=== PATIENT | female | born 1985 | race Caucasian/White ===

== ENCOUNTER 2018-06-20 03:25 | Inpatient (IN) | payer OTHER ==
[2018-06-20 04:14] VITALS: BMI 48.9
[2018-06-20 05:33] LABS: Hemoglobin 12.6 g/dL (12.0-16.0); Mean Corpuscular HGB CONC 33.7 g/dL (32.0-36.0); Mean Corpuscular Hemoglobin 30.2 pg (27.0-31.0); Mean Corpuscular Volume 89.7 fL (78.0-98.0); Mean Platelet Volume 7.9 fL (7.4-10.4); Platelet Count 241 thou/uL (130-400); RBC Distribution Width 12.1 % (11.5-14.5); Red Blood Cell (RBC) Count 4.18 mill/uL (4.20-5.40); White Blood Cell (WBC) Count 9.8 thou/uL (4.8-10.8)
[2018-06-20 05:46] LABS: HBSAg Index 0.17 S/CO (0-0.99); HIV (1/2) Antibody/Antigen Non-Reactive (NonReactive); HIV 1/2 INDEX 0.16 S/CO (<1.00); Hep B Surf Ag Non-Reactive S/CO (NonReactive)
[2018-06-20] MEDS ORDERED: DISCONTINUE ALL PREVIOUS NARCOTICS FS SCH (06:15)
[2018-06-20] MEDS ORDERED: Promethazine HCl 25 MG/ML VIAL IM PRN ×2 (06:26→06:53)
[2018-06-20] MEDS ORDERED: Ondansetron HCl/PF 4 MG/2 ML Vial IVP PRN ×2 (06:26→06:53)
[2018-06-20] MEDS ORDERED: HYDROcodone/Acetaminophen 5/325 mg Tablet PO PRN ×2 (06:26)
[2018-06-20] MEDS ORDERED: Lidocaine 1% (PF) 30 ML VIAL SC PRN (06:26)
[2018-06-20] MEDS ORDERED: Ibuprofen 800 MG TAB PO PRN (06:26)
[2018-06-20] MEDS ORDERED: Butorphanol Tartrate 1 MG/ML VIAL SLOW IVP PRN (06:26)
[2018-06-20] MEDS ORDERED: NS / Oxytocin 40 units/1000ml 1,000 ML IV PRN (06:26)
[2018-06-20] MEDS ORDERED: Lactated Ringer's 1,000 ML IV SCH (06:30)
[2018-06-20] MEDS ORDERED: NS w/ Oxytocin 10 units 500 ML IV SCH (06:30)
[2018-06-20] MEDS: Lactated Ringer's 1,000 ML IV SCH ×3 (06:45→22:01)
[2018-06-20] MEDS: Bupivacaine 0.75% 13.4 ML, fentaNYL Citrate/PF 400 MCG in Sodium Chloride 0.9% 78.6 ML EPIDURAL SCH ×3 (06:45→22:01)
[2018-06-20 06:53] LABS: Syphilis Antibody Nonreactive (Nonreactive); Syphilis Antibody Index 0.04 S/CO (<1.00 Non-Reactive)
[2018-06-20] MEDS ORDERED: Acetaminophen 325 MG TAB PO PRN (06:53)
[2018-06-20] MEDS ORDERED: Lactated Ringer's 500 ML IV PRN (06:53)
[2018-06-20] MEDS ORDERED: Naloxone HCl 0.4 mg/ml Vial IVP PRN ×2 (06:53)
[2018-06-20] MEDS ORDERED: ePHEDrine/0.9% NaCl/PF SYRINGE 50 mg/10 ml SLOW IVP PRN (06:53)
[2018-06-20] MEDS ORDERED: diphenhydrAMINE 50 MG/ML VIAL IVP PRN (06:53)
[2018-06-20] MEDS ORDERED: Eucerin (Mineral Oil/Petrolatum,White) 30 gm Jar TOP PRN (06:53)
[2018-06-20] MEDS ORDERED: Communication Order-Pharmacy FS SCH (07:00)
[2018-06-20] MEDS ORDERED: fentaNYL Citrate/PF 400 MCG, Bupivacaine 0.5% 20 ML in Sodium Chloride 0.9% 72 ML EPIDURAL SCH (07:00)
[2018-06-20] MEDS ORDERED: Bupivacaine HCl 0.5%/Epinephrine 1:200,000/PF 30 ml Vial ONE (09:03)
[2018-06-20] MEDS ORDERED: NS w/ Oxytocin 10 units 500 ML ONE (10:11)
--- NOTE | 2018-06-20 11:55 | PDOC.LDHP ---
Labor and Delivery H&P Chief complaint: loss of fluid (at 0300) HPI: 32yo A2 at 38w0d by LMP with c/o LOF since 0300 clear and painful ctx q 5- 8min. Current gestational age (weeks): 38 Due date: 07/05/18 Dating criteria: last menstrual period Grav: 3 Para: 2 Current complications: none Abnormal US findings: No (EFW >99% at 34wk) Past Medical History: denies Current medications: pre- vitamins Previous surgical history: other (hymenectomy) Allergies/Adverse Reactions: Allergies Allergy/AdvReac Type Severity Reaction Status Date / Time No Known Allergies Allergy Verified 06/20/18 04:10 Social history: none - Physical Exam Vital signs reviewed and normal: yes General: NAD Heart: RRR Lungs: CTAB Abdomen: gravid Extremeties: no edema FHT: category 1 [place] contractions every: 3min - Vaginal Exam cm dilated: 4 Effacement: 90% Station: -1 - OB Labs Blood type: A RH: positive Antibody Screen: negative HIV: negative RPR: negative HEPSAg: negative 1 hour GCT: negative GBS: negative Urine drug screen: not done Rubella: immune - Assessment L&D Assessment: term patient in labor - Plan Plan: admit to L&D, labor augmentation if indicated, informed consent obtained, anesthesia consult for pain management
--- NOTE | 2018-06-20 19:39 | PDOC.LDPN ---
Labor & Delivery Progress Note - Subjective Subjective: comfortable - Objective Vital signs reviewed and normal: yes General: NAD Uterine fundus: non tender Dilation: 7 Effacement: 100% Station: 0 FHT: category 1 [place] contractions every: 3-4min IUPC placed: yes Plan: continue plan of care
[2018-06-21] MEDS ORDERED: Misoprostol 200 MCG TAB ONE (00:54)
[2018-06-21] MEDS ORDERED: CEFAZOLIN/Water 2 GM/20 ML SYRINGE ONE (03:02)
[2018-06-21] MEDS ORDERED: Bicitra 30 ML UDCUP ONE (03:02)
--- NOTE | 2018-06-21 03:08 | PDOC.LDPN ---
Labor & Delivery Progress Note - Subjective Subjective: vaginal pressure - Objective Vital signs reviewed and normal: yes General: NAD Uterine fundus: non tender Dilation: 10 Effacement: 100% Station: 1+ (direct OP) FHT: category 1 [place] contractions every: 3min -: Now pushing for almost 3hr with no descent since initiation and trying pushing multiple positions. Baby is Direct OP, attempt was made to turn baby to OA however unsuccessful. Dispo for PCS due to AOD. To OR now, maria r and juno for ppx. Disc with pt and in detail and they wish to proceed.
[2018-06-21] MEDS ORDERED: CEFAZOLIN/Water 2 GM/20 ML SYRINGE SLOW IVP SCH (03:15)
[2018-06-21] MEDS ORDERED: Bicitra 30 ML UDCUP PO SCH (03:15)
[2018-06-21] MEDS ORDERED: Azithromycin 500 MG in Sodium Chloride 0.9% 250 ML 250 ML IVPB SCH (03:15)
[2018-06-21] MEDS ORDERED: Ondansetron HCl/PF 4 MG/2 ML Vial ONE ×2 (03:25→15:03)
[2018-06-21] MEDS ORDERED: Morphine PF 1 MG/ML SYR ONE (03:25)
[2018-06-21] MEDS ORDERED: Oxytocin 10 UNITS/ML VIAL ONE ×2 (03:25→04:18)
[2018-06-21] MEDS ORDERED: Lidocaine 2% 10 ML INJ ONE (03:27)
[2018-06-21] MEDS ORDERED: ePHEDrine/0.9% NaCl/PF SYRINGE 50 mg/10 ml ONE ×2 (04:02→15:03)
[2018-06-21] MEDS ORDERED: Ondansetron HCl/PF 4 MG/2 ML Vial IVP PRN ×2 (04:12→04:13)
[2018-06-21] MEDS ORDERED: HYDROmorphone 2 MG/ML VIAL SLOW IVP PRN (04:12)
[2018-06-21] MEDS ORDERED: Meperidine HCl/PF 25 MG/ML VIAL SLOW IVP PRN (04:12)
[2018-06-21] MEDS ORDERED: Eucerin (Mineral Oil/Petrolatum,White) 30 gm Jar TOP PRN (04:13)
[2018-06-21] MEDS ORDERED: Naloxone HCl 0.4 mg/ml Vial IVP PRN ×2 (04:13)
[2018-06-21] MEDS ORDERED: diphenhydrAMINE 50 MG/ML VIAL IVP PRN (04:13)
[2018-06-21] MEDS ORDERED: Ketorolac Tromethamine 30 MG/ML VIAL IVP PRN (04:13)
[2018-06-21] MEDS ORDERED: Naloxone HCl 0.4 mg/ml Vial IV PRN (04:13)
[2018-06-21] MEDS ORDERED: Ketorolac Tromethamine 30 MG/ML VIAL IVP SCH (04:15)
[2018-06-21] MEDS ORDERED: Communication Order-Pharmacy FS SCH (04:15)
[2018-06-21] MEDS ORDERED: Fentanyl 250 MCG/5 ML VIAL ONE (04:17)
[2018-06-21] MEDS ORDERED: Midazolam HCl 2 mg/2 ml Vial ONE (04:21)
--- NOTE | 2018-06-21 05:21 | OP ---
DATE OF OPERATION: 06/21/2018 PREOPERATIVE DIAGNOSES: 1. Intrauterine at 38 weeks and 1 day. 2. Spontaneous onset of labor. 3. Arrest of descent. POSTOPERATIVE DIAGNOSES: 1. Intrauterine at 38 weeks and 1 day. 2. Spontaneous onset of labor. 3. Arrest of descent. PROCEDURE: Primary low transverse section via Pfannenstiel skin incision and left O'Newport s uture. ANESTHESIA: Epidural. ATTENDING SURGEON: Claudia Sotelo M.D. CHIEF SERVICE DISPATCHER: Luke Cevallos M.D. ESTIMATED BLOOD LOSS: 800 mL. Final quantitative blood loss pending per nursing. COMPLICATIONS: None. DRAINS: Briceno catheter. PATHOLOGY: None. FINDINGS: Male , OP presentation, clear amniotic fluid, Apgars of 9 and 9, weight is 8 pounds 3 ounces. Normal uterus, ovaries, and tubes bilaterally. There was extension of hysterotomy into th e left uterine vessel that was hemostatic with the left O'Newport stitch. OPERATIVE TECHNIQUE: Patient was taken to the operating room where epidural anesthesia was found to be adequate. Patient was prepped and draped in sterile fashion on dorsal supine position with leftwa rd tilt. After ensuring adequacy of anesthesia, a Pfannenstiel skin incision was made and carried do wn to the underlying subcutaneous tissue with a knife, cauterizing vessels with the Bovie. The fasci a was nicked in the midline with Bovie and carried laterally with the Espinoza scissors. Rectus perforat ors were cauterized. The superior aspect of the fascia was tented with 2 Kochers and dissected off t he rectus bluntly. The inferior aspect of the fascia was tented with 2 Kochers and dissected off the rectus with the Espinoza scissors. The peritoneum was bluntly entered into and manually retracted. The Damaso O retractor was placed. The bowel was packed out of the way. The bladder flap was created w ith the Metzenbaums and the lower uterine segment was incised in a transverse fashion and extended wi th the Alvarado maneuver. The infant's head was brought to the hysterotomy and delivered atraumatically. Delayed cord clamping was performed and infant's cord was clamped and handed to awaiting radha team. Cord blood was obtained and placenta was allowed to spontaneously deliver. The uterine exten tiffanie was clamped off with a ring forceps and whereas the initial stitch for closure with #1 Monocryl. The uterine vessel was attempted to be incorporated into the initial closure; however, there was st ill active bleeding from the left aspect of the hysterotomy and this was hemostatic with a figure-of- eight O'Newport stitch on the left uterine vessel just distal to the uterus, so bladder had previously been taken down was well out of the way and the hand was placed posteriorly to retract any posterior structures out of the way. An excellent hemostasis was noted of this area. The hysterotomy was then repaired with #1 Monocryl in a running locking fashion with hemostasis noted. A second horizontal i mbricating layer of #1 Monocryl was also placed and hemostasis was excellent. The pelvis was copious ly irrigated and suctioned and again noting hemostasis. The laparotomy sponge was removed out of the abdomen. Counts were correct at this time and the Damaso O retractor was removed out of the abdomen . The rectus muscles were examined and noted to be hemostatic. The peritoneum was closed with a 2-0 chromic in a running fashion. The fascia was reapproximated with a #1 PDS x2 sutures with excellent reapproximation. The subcutaneous tissue was irrigated and cauterized of any bleeders and reapproxi mated with 2 layers of 2-0 plain gut in a running fashion. The skin was closed with 4-0 Monocryl in a subcuticular fashion. Dermabond was applied as well as a pressure dressing. Patient tolerated pro cedure well. Sponge, lap, and needle counts were correct x2. Patient was taken to recovery room in stable condition. Patient received Ancef 2 grams and azithromycin 500 mg prior to skin incision.
[2018-06-21] MEDS ORDERED: Ketorolac Tromethamine 30 MG/ML VIAL ONE (06:12)
[2018-06-21] MEDS ORDERED: diphenhydrAMINE 25 MG CAP PO PRN (07:50)
[2018-06-21] MEDS ORDERED: Lanolin Ointment 7 GM TUBE TOP PRN (07:50)
[2018-06-21] MEDS ORDERED: Acetaminophen 325 MG TAB PO PRN (07:50)
[2018-06-21] MEDS ORDERED: Adacel (T-DAP) 0.5 ML VIAL IM ONE (07:50)
[2018-06-21] MEDS: Ibuprofen 800 MG TAB PO SCH ×2 (08:47→16:18)
[2018-06-21] MEDS: Docusate Calcium (SURFAK) 240 MG CAP PO SCH ×2 (08:58→22:13)
[2018-06-21] MEDS: Prenatal Vitamin 1 TAB PO SCH (09:01)
[2018-06-21] MEDS: Ferrous Sulfate 325 MG TAB PO SCH ×2 (09:01→22:14)
--- NOTE | 2018-06-21 11:04 | OP ---
DATE OF ENCOUNTER: 06/21/2018 The patient underwent a primary for arrest of second stage early this morning by her primar y physician, Dr. Claudia Sotelo. I was general office assistant.
--- NOTE | 2018-06-21 12:36 | PDOC.PP ---
Post Progress Note Post Day #: 0 PO intake tolerated: yes Flatus: no Ambulation: no Vital Signs (12 hours) Temp Pulse Resp BP Pulse Ox 06/21/18 12:00 98.4 F 92 16 06/21/18 09:45 98.4 F 92 16 119/73 97 06/21/18 08:45 99 20 128/72 06/21/18 07:50 98.4 F 100 16 133/78 97 06/21/18 07:45 98.4 F 100 16 97 Weight Weight 285 lb - Physical Examination General: NAD Cardiovascular: RRR Respiratory: non-labored breathing Abdominal: no distention, appropriately TTP Fundus firm & at: umb Psychiatric: normal affect Result Diagrams: 06/20/18 05:04 Additional Labs: Post Labs Blood Type A POSITIVE 06/20/18 05:04 Hep Bs Antigen Non-Reactive S/CO (NonReactive) 06/20/18 05:04 - Assessment/Plan POD0 s/p PCS for AOD VSSAF Doing well, routine advances Rh pos RImm Cont postop care.
[2018-06-21] MEDS: Lactated Ringer's 1,000 ML IV SCH (13:57)
[2018-06-21] MEDS: Simethicone Chewable 80 MG TAB PO PRN (23:01)
[2018-06-21] MEDS: HYDROcodone/Acetaminophen 5/325 mg Tablet PO PRN (23:01)
[2018-06-22] MEDS: Ibuprofen 800 MG TAB PO SCH ×4 (01:18→21:44)
[2018-06-22] MEDS: HYDROcodone/Acetaminophen 5/325 mg Tablet PO PRN ×4 (03:53→17:45)
[2018-06-22] MEDS: Simethicone Chewable 80 MG TAB PO PRN ×2 (05:36→13:47)
[2018-06-22 06:01] LABS: Hemoglobin 10.8 g/dL (12.0-16.0); Mean Corpuscular HGB CONC 34.5 g/dL (32.0-36.0); Mean Corpuscular Hemoglobin 31.7 pg (27.0-31.0); Mean Corpuscular Volume 91.9 fL (78.0-98.0); Mean Platelet Volume 7.5 fL (7.4-10.4); Platelet Count 201 thou/uL (130-400); RBC Distribution Width 12.3 % (11.5-14.5); White Blood Cell (WBC) Count 11.2 thou/uL (4.8-10.8)
--- NOTE | 2018-06-22 07:39 | PDOC.PP ---
Post Progress Note Post Day #: 1 PO intake tolerated: yes Flatus: yes Ambulation: yes Vital Signs (12 hours) Temp Pulse Resp BP Pulse Ox 06/22/18 01:00 98.3 F 101 H 18 120/73 06/21/18 22:30 98.9 F 104 H 16 121/74 97 Weight Weight 285 lb - Physical Examination General: NAD Cardiovascular: RRR Respiratory: non-labored breathing Abdominal: no distention, appropriately TTP Fundus firm & at: umb Skin: CS incision dry & intact Neurological: no gross focal deficits Psychiatric: normal affect Result Diagrams: 06/22/18 05:29 Additional Labs: Post Labs Blood Type A POSITIVE 06/20/18 05:04 Hep Bs Antigen Non-Reactive S/CO (NonReactive) 06/20/18 05:04 - Assessment/Plan POD1 s/p PCS for AOD VSSAF Doing well, some anxiety related to , pain controlled and appropriate milestones. consult ordered Hgb appropriate postop, no sx anemia. Rh pos RImm Cont postop care.
[2018-06-22] MEDS: Docusate Calcium (SURFAK) 240 MG CAP PO SCH ×2 (09:24→21:43)
[2018-06-22] MEDS: Prenatal Vitamin 1 TAB PO SCH (09:25)
[2018-06-22] MEDS: Ferrous Sulfate 325 MG TAB PO SCH ×2 (09:25→21:42)
[2018-06-23] MEDS: Prenatal Vitamin 1 TAB PO SCH (08:25)
[2018-06-23] MEDS: Docusate Calcium (SURFAK) 240 MG CAP PO SCH ×2 (08:25→21:57)
[2018-06-23] MEDS: Ibuprofen 800 MG TAB PO SCH ×3 (08:25→22:58)
[2018-06-23] MEDS: Ferrous Sulfate 325 MG TAB PO SCH ×2 (08:30→22:59)
--- NOTE | 2018-06-23 17:38 | PDOC.PP ---
Post Progress Note Post Day #: 2 PO intake tolerated: yes Flatus: yes Ambulation: yes Vital Signs (12 hours) Temp Pulse Resp BP 06/23/18 08:05 97.9 F 89 20 134/83 06/23/18 07:30 97.9 F 89 20 Weight Weight 285 lb - Physical Examination General: NAD Cardiovascular: RRR Respiratory: non-labored breathing Abdominal: no distention, appropriately TTP Fundus firm & at: umb-2 Skin: CS incision dry & intact Psychiatric: normal affect Result Diagrams: 06/22/18 05:29 Additional Labs: Post Labs Blood Type A POSITIVE 06/20/18 05:04 Hep Bs Antigen Non-Reactive S/CO (NonReactive) 06/20/18 05:04 Rubella IgG Antibody 3.31 index (Immune >0.99) 06/20/18 05:04 - Assessment/Plan POD2 s/p PCS for AOD VSSAF Doing well met all milestones, s/p BM, pain controlled s/p , still with questions, to revisit today Rh pos RImm Home likely tomorrow.
[2018-06-23] MEDS: HYDROcodone/Acetaminophen 5/325 mg Tablet PO PRN (18:29)
[2018-06-23] MEDS: Simethicone Chewable 80 MG TAB PO PRN (21:57)
[2018-06-24] MEDS: Ibuprofen 800 MG TAB PO SCH (06:35)
[2018-06-24] MEDS: Ferrous Sulfate 325 MG TAB PO SCH (07:36)
[2018-06-24 08:00] VITALS: BP 110/59; TEMP 98.6
--- NOTE | 2018-06-24 08:00 | PDOC.PP ---
Post Progress Note Post Day #: 3 PO intake tolerated: yes Flatus: yes Ambulation: yes Vital Signs (12 hours) Temp Pulse Resp BP 06/23/18 20:26 98.0 F 101 H 20 133/90 Weight Weight 285 lb - Physical Examination General: NAD Cardiovascular: RRR Respiratory: non-labored breathing Abdominal: no distention, appropriately TTP Fundus firm & at: umb-2 Skin: CS incision dry & intact Neurological: no gross focal deficits Psychiatric: normal affect Result Diagrams: 06/22/18 05:29 Additional Labs: Post Labs Blood Type A POSITIVE 06/20/18 05:04 Hep Bs Antigen Non-Reactive S/CO (NonReactive) 06/20/18 05:04 Rubella IgG Antibody 3.31 index (Immune >0.99) 06/20/18 05:04 - Assessment/Plan POD3 s/p PCS for AOD VSSAF Doing well, met all milestones s/p LC Rh pos RImm DC home FU 2 wk
[2018-06-24] MEDS: Docusate Calcium (SURFAK) 240 MG CAP PO SCH (09:09)
[2018-06-24] MEDS: Prenatal Vitamin 1 TAB PO SCH (09:09)
== END 2018-06-24 14:25 | disposition home or self-care (01) | DRG 766 ==
LOC: L&D/OP 03:25 → L&D 04:37 → 3SW 06-21 07:48
PROVIDERS: ADMIT Student in an Organized Health Care Education/Training Program; ATTEND Student in an Organized Health Care Education/Training Program
PROC: 10D00Z1 Extraction of Products of Conception, Low, Open Approach (ICD-10-PCS; principal; 2018-06-21)
DX: O62.1 Secondary uterine inertia (principal); Z3A.38 38 weeks gestation of pregnancy; Z37.0 Single live birth
CPT/HCPCS: 36415; 51702; 85027; 86762; 86780; 86850; 86900; 86901; 87340; 87389; 99285; J0456; J0670; J1885; J2001; J2250; J2274; J2405; J2590; J3010; J7050

== ENCOUNTER 2019-04-13 14:18 | Outpatient (CLI) | payer OTHER ==
--- NOTE | 2019-04-13 15:44 | MMO ---
Bilateral MAMMO Bilat Diag DDI+RONI. CLINICAL HISTORY: Patient is 33 years old and is seen for diagnostic exam,palpable abnormality and pain in the left breast. The patient has the following family history of breast cancer: maternal grandmother. The patient has no personal history of cancer. VIEWS: The views performed were: bilateral craniocaudal with tomosynthesis; bilateral mediolateral oblique with tomosynthesis; and bilateral mediolateral. FILMS COMPARED: The present examination has been compared to a prior imaging study performed at [facility] on 04/13/2019. MAMMOGRAM FINDINGS: There are scattered fibroglandular densities. Finding 1: There is an intramammary lymph node seen in the left breast at 5 o'clock. Finding 2: No mammographic or ultrasound finding to account for the palpable finding. There are no suspicious masses, suspicious calcifications, or new areas of architectural distortion. IMPRESSION: THERE IS NO MAMMOGRAPHIC EVIDENCE OF MALIGNANCY. A ROUTINE FOLLOW-UP MAMMOGRAM AT AGE 40 IS RECOMMENDED. THE RESULTS OF THIS EXAM WERE SENT TO THE PATIENT. ACR BI-RADS Category 2 - Benign finding MAMMOGRAPHY NOTE: 1. A negative mammogram report should not delay a biopsy if a dominant of clinically suspicious mass is present. 2. Approximately 10% to 15% of breast cancers are not detected by mammography. 3. Adenosis and dense breasts may obscure an underlying neoplasm.
--- NOTE | 2019-04-13 15:51 | ULT ---
LEFT BREAST ULTRASOUND: HISTORY: Palpable finding left breast at approximately 9 o'clock. FINDINGS: There is a small circumscribed echogenic focus in the 9 o'clock position of the left breast, evidence for a small lipoma. I do not think that this represents the palpable finding. In the 5 o'clock pos ition 5 cm from the nipple, there is an intramammary lymph node measuring 0.6 cm. IMPRESSION: Unremarkable diagnostic mammogram and left breast ultrasound in the region of palpable concern. Inci dental small lipoma. Small intramammary lymph node. Followup mammogram at age 35-40 depending upon risk factors. POS: OFF
== END 2019-04-13 14:19 | disposition home or self-care (01) ==
LOC: BICMAMMO 14:18
PROVIDERS: ATTEND Obstetrics & Gynecology
DX: N63.20 Unspecified lump in the left breast, unspecified quadrant (principal); Z80.3 Family history of malignant neoplasm of breast
CPT/HCPCS: 77066; G0279

== ENCOUNTER 2019-07-01 09:36 | Outpatient (CLI) | payer OTHER ==
[~2019-07-01 09:36] MED LIST: Iopamidol 300 61% 100 ML VIAL FS ONE
--- NOTE | 2019-07-01 12:08 | CT ---
CT abdomen and pelvis with IV and oral contrast HISTORY: Lower abdomen pain. FINDINGS: No comparison. Lung bases are clear. The liver, spleen, kidneys, adrenal glands, and pancre as have a normal CT appearance. No free fluid is apparent. Urinary bladder is decompressed. Circumaortic left renal vein. Between the medial aspect of the upper gastric body and the left diaphragmatic crura is an oval low d ensity mass measuring up to 1.8 cm length by 1.5 cm width by 2.0 cm depth. Hounsfield unit measurements are slightly greater than that of simple fluid. The mass is favored to be outside of the gastric wall is separate from the adrenal gland. IMPRESSION: No acute inflammatory process is apparent. Well-circumscribed small mass within the left upper medial abdomen, as detailed above. It does not santos ve an overtly aggressive appearance. It is favored to be outside of the stomach, so that the endoscopic visualization is likely not possible. It may represent a congenital anomaly or fluid colle ction or a gastrointestinal intestinal stromal tumor.. Please consider follow-up CT in 6 months to evaluate for stability.
== END 2019-07-01 09:37 | disposition home or self-care (01) ==
LOC: SCSCT 09:36
PROVIDERS: ATTEND Family Medicine
DX: R10.30 Lower abdominal pain, unspecified (principal); R19.04 Left lower quadrant abdominal swelling, mass and lump
CPT/HCPCS: 74177; Q9967

== ENCOUNTER 2020-10-19 20:56 | Inpatient (IN) | payer OTHER ==
[2020-10-19] MEDS ORDERED: hydrALAZINE 20 MG/ML VIAL SLOW IVP PRN ×2 (21:10→22:02)
--- NOTE | 2020-10-19 21:18 | PDOC.FPROB ---
FMR OB H&P: HPI - History of Present Illness Chief Complaint: leakage of fluid Indentification: 35 at at 36.5 wga History of Present Illness: Patient reports she thinks her water broke today around 1729 while she was in the shower. Yesterday she saw some mucus discharge. Since 1729, she has felt some leakage intermittently and soaked through a couple of changes of pants since she did not have any pads. Denies vaginal bleeding and other discharge. [place] FM earlier today. Had planned for RLTCS with this . Reports elevated BP in clinic on Thursday, but no other problems with this . Primary Care Physician: Deepak FMR OB H&P: Current - Care : 4 Para: 1021 Gestational age: 36.5 wga Due date: 11/11/2020 Course/Complications: Obesity. AMA, taking aspirin 81mg Desires repeat . - OB Labs Blood type: A RH: positive Antibody Screen: negative HIV: negative RPR: negative HepBsAg: negative Rubella: immune Quad screen: negative Urine drug screen: negative Gonorrhea: negative Chlamydia: negative 1 hour gtt: 101 A1c: 4.9 GBS: unknown Additional labs: TSH normal FMR OB H&P: History - Past Medical History PMH: Denies - OB History OB History: Prior for failure to descend. 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 - Surgical History Sx History: Hymenectomy - Social History Social History: Denies smoking, drinking, drugs. - Family History Family History: Denies. FMR OB H&P: Medications - Current Home Medications: Medication Instructions Recorded Confirmed Type Comb No.42/Folic Acid 1 tablet PO DAILY 06/20/18 10/19/20 History [Prena1 Chewable Tablet] Aspirin [Ecotrin] 81 mg PO DAILY 10/19/20 10/19/20 History Allergies/Adverse Reactions: Allergies Allergy/AdvReac Type Severity Reaction Status Date / Time No Known Allergies Allergy Verified 10/19/20 21:40 FMR OB H&P: ROS - Review of Systems General: denies: fever/chills Eyes: denies: vision changes ENT: denies: nasal congestion, sore throat Cardiovascular: denies: chest pain Respiratory: denies: cough, shortness of breath Gastrointestinal: denies: abdominal pain, nausea, vomiting Genitourinary (Female): reports: vaginal discharge, vaginal pressure. denies: dysuria, vaginal bleeding, contractions Musculoskeletal: denies: pain Neurologic: reports: headache (mild earlier today) Integumentary: denies: rash Hematologic/Lymphatic: denies: prolonged or excessive bleeding Psychological: denies: depression, anxiety FMR OB H&P: Vital Signs - Maternal Vital signs: HR 105 BP 162/91, multiple cuff sizes attempted - Heart Tones Baseline: 150 (reactive) Variability: moderate Acceleration: present Deceleration: absent [place] contractions every: none FMR OB H&P: Physical Exam - Physical Exam General: NAD, awake, alert and oriented HEENT: normocephalic and atraumatic, no scleral icterus, grossly normal vision, grossly normal hearing Neck: trachea midline Heart: RRR, normal S1/S2, no murmurs/rubs/gallops General: CTAB, no respiratory distress Abdomen: soft, gravid, non-tender Musculoskeletal: FROM in all four extremities Neurological: no focal deficit Skin: no rash, no jaundice Lymphatic: no unusual bruising or bleeding Psychiatric: intact recent and remote memory, normal mood and affect - Pelvic Exam Vulva: normal hair distribution Deviation from normal: right vulvar tag Membranes: grossly ruptured on sterile speculum exam Estimated Weight: 8 lbs, other (difficult to assess due to obese abdomen) FMR OB H&P: A/P - Problem List (1) Current Visit: Yes Status: Acute Disposition: admit to L&D for RLTCS & RRS. Contacted Dr. Bunch for assistance. Discussion: Date/Time: 10/19/202115 35 yo at 36.5 wga PROM - grossly ruptured on exam - amnisure pending Elevated BPs, rule out preeclampsia - CBC, CMP, urine protein/cr ordered - monitor BP q15 min Obesity AMA Desires repeat and risk-reducing salpingectomy. Paperwork demonstrating approval by ethics committee on Patient's chart. This H&P was discussed with Dr. Mantilla, who agrees with the above documentation and plan. Signature: Leonie De La Torre MD PGY2 Addendum - Attending - Attending Attestation Date/Time: 10/20/208 I personally evaluated the patient and discussed the management with Dr. De La Torre. 36 week IUP with prev. C/S and request for RRS presents with SROM. Will proceed to OR with assist by Dr. Bunch. I agree with the History, Examination, Assessment and Plan documented above.
[2020-10-19] MEDS: Lactated Ringer's 1,000 ML IV SCH (21:44)
[2020-10-19] MEDS ORDERED: Ondansetron PF 4 MG/2 ML Vial IVP PRN (22:02)
[2020-10-19] MEDS ORDERED: Promethazine HCl 25 MG/ML VIAL IM PRN (22:02)
[2020-10-19 22:06] LABS: #Basophils 0.1 thou/uL (0.0-0.2); #Eosinphils 0.1 thou/uL (0.0-0.7); #Lymphocytes 1.6 thou/uL (1.20-3.40); #Monocytes 0.7 thou/uL (0.11-0.59); #Neutrophils 6.2 thou/uL (1.40-6.50); %Basophils 0.8 % (0.0-1.0); %Eosinophils 1.1 % (0.0-10.0); %Lymphocytes 18.8 % (21.0-51.0); %Neutrophils 71.4 % (42.0-75.0); Mean Corpuscular Hemoglobin 29.3 pg (27.0-31.0); Mean Corpuscular Volume 86.4 fL (78.0-98.0); Mean Platelet Volume 8.3 fL (7.4-10.4); Platelet Count 231 thou/uL (130-400); RBC Distribution Width 12.3 % (11.5-14.5); White Blood Cell (WBC) Count 8.6 thou/uL (4.8-10.8)
[2020-10-19 22:12] VITALS: BMI 55.7
[2020-10-19 22:15] LABS: Amnisure Internal Control QC ACCEPTABLE (ACCEPTABLE); Amnisure Test RUPTURE DETECTED (No Rupture)
[2020-10-19] MEDS ORDERED: Azithromycin 500 MG in Sodium Chloride 0.9% 250 ML 250 ML IVPB SCH (22:15)
[2020-10-19] MEDS ORDERED: Bicitra 30 ML UDCUP PO SCH (22:15)
[2020-10-19] MEDS ORDERED: CEFAZOLIN 2 GM in Premix Bag 1 BAG IVPB SCH (22:15)
[2020-10-19 22:27] LABS: ALT (SGPT) 15 U/L (8-55); AST (SGOT) 15 U/L (5-34); Albumin 3.3 g/dL (3.5-5.0); Alkaline Phosphatase 123 U/L (40-110); Anion Gap 14 mmol/L (10-20); BUN (Urea Nitrogen) 7 mg/dL (7.0-18.7); Bilirubin, Total 0.3 mg/dL (0.2-1.2); Calc. Creatinine Clearance 281 mL/min (70-130); Calcium 9.5 mg/dL (7.8-10.44); Carbon Dioxide 20 mmol/L (22-29); Chloride 107 mmol/L (98-107); Estimated GFR-MDRD Greater than 90; Globulin 3.3 g/dL (2.4-3.5); Glucose 99 mg/dL (70-105); Potassium 3.4 mmol/L (3.5-5.1); Protein, Total 6.6 g/dL (6.0-8.3); Sodium 138 mmol/L (136-145)
[2020-10-19] MEDS ORDERED: Oxytocin 10 UNITS/ML VIAL ONE (22:35)
[2020-10-19] MEDS ORDERED: Ondansetron PF 4 MG/2 ML Vial ONE (22:35)
[2020-10-19] MEDS ORDERED: PHENYLEPHRINE-NS 100 MCG/ML 10 ML SYRINGE ONE (22:35)
[2020-10-19] MEDS ORDERED: Morphine PF 10 MG/10 ML VIAL ONE (22:35)
[2020-10-19 23:21] LABS: Syphilis Antibody Nonreactive (Nonreactive); Syphilis Antibody Index 0.03 S/CO (<1.00 Non-Reactive)
[2020-10-19 23:23] LABS: HBSAg Index 0.14 S/CO (0-0.99); Hep B Surf Ag Non-Reactive S/CO (NonReactive)
--- NOTE | 2020-10-19 23:30 | ULT ---
LIMITED OB ULTRASOUND: Date: 10/19/2020 PROVIDED CLINICAL HISTORY: Premature rupture of membranes. FINDINGS: A single, live intrauterine gestation is documented in vertex presentation. heart rate of 147 b eats/minute is documented. The placenta is anteriorly and right laterally located, with the relations hip to the cervix not well assessed. Amniotic fluid index is 3.8. IMPRESSION: Vertex presentation. Oligohydramnios. POS: MARANDA
[2020-10-19 23:35] LABS: Actual Bicarbonate (HCO3a) 25.3 mEq/L (22-28); Analyzer IN Cardio ER; Base Excess (BEa) -3.6 mEq/L (-2.0 to +3.0)
[2020-10-19 23:37] LABS: Actual Bicarbonate (HCO3v) 24 mEq/L (22-28); Analyzer IN Cardio ER; pH (Cord, venous) 7.26 (7.32-7.43)
[2020-10-20] MEDS ORDERED: Meperidine HCl/PF 25 MG/ML VIAL SLOW IVP PRN (00:11)
[2020-10-20] MEDS ORDERED: Naloxone HCl 0.4 mg/ml Vial IVP PRN ×2 (00:11)
[2020-10-20] MEDS ORDERED: Naloxone HCl 0.4 mg/ml Vial IV PRN (00:11)
[2020-10-20] MEDS ORDERED: HYDROmorphone 2 MG/ML VIAL SLOW IVP PRN (00:11)
[2020-10-20] MEDS ORDERED: Promethazine HCl 25 MG SUPP PR PRN (00:11)
[2020-10-20] MEDS ORDERED: L&D-Morphine 4 MG/ML VIAL SLOW IVP PRN (00:11)
[2020-10-20] MEDS ORDERED: Ondansetron PF 4 MG/2 ML Vial IVP PRN ×2 (00:11→02:06)
[2020-10-20] MEDS ORDERED: diphenhydrAMINE 50 MG/ML VIAL IVP PRN (00:11)
[2020-10-20] MEDS ORDERED: Promethazine HCl 25 MG/ML VIAL IM PRN (00:11)
[2020-10-20] MEDS ORDERED: Ondansetron HCl/PF 4 MG/2 ML Vial IVP PRN (00:11)
[2020-10-20] MEDS ORDERED: Ondansetron PF 4 MG/2 ML Vial ONE (00:13)
[2020-10-20] MEDS ORDERED: Ketorolac Tromethamine 30 MG/ML VIAL IVP SCH (00:15)
[2020-10-20] MEDS ORDERED: Communication Order-Pharmacy FS SCH (00:15)
[2020-10-20] MEDS ORDERED: Ketorolac Tromethamine 30 MG/ML VIAL ONE (00:18)
[2020-10-20] MEDS: Ketorolac Tromethamine 30 MG/ML VIAL IVP PRN ×4 (00:25→20:27)
[2020-10-20] MEDS: Lactated Ringer's 1,000 ML IV SCH ×2 (00:26→06:09)
[2020-10-20 01:12] LABS: Creatinine, Urine 109.97 mg/dL (47-110)
--- NOTE | 2020-10-20 01:12 | OP ---
DATE OF PROCEDURE: 10/19/2020 PREOPERATIVE DIAGNOSES: 1. 36 and 5/7th-week intrauterine . 2. Previous section. 3. Ruptured membranes. 4. Family history of ovarian cancer requesting risk reducing salpingectomy. POSTOPERATIVE DIAGNOSES: 1. 36 and 5/7th-week intrauterine . 2. Previous section. 3. Ruptured membranes. 4. Family history of ovarian cancer requesting risk reducing salpingectomy. PROCEDURES PERFORMED: 1. Repeat low-segment transverse section via Pfannenstiel incision. 2. Risk reducing bilateral salpingectomies. PARTS PRODUCT ANALYST SURGEONS: Jose Roberto Bunch DO and Leonie De La Torre MD ANESTHESIA: Spinal. ESTIMATED BLOOD LOSS: 600 mL, QBL pending. PROPHYLAXIS: Ancef 2 g with Zithromax 500 mg, both given prior to skin incision. FINDINGS: 1. A male viable male , weight 7 pounds 6 ounces. Apgars 8 and 9, found in the cephalic presentation. 2. Normal uterus, tubes, and ovaries bilaterally. 3. Cord arterial pH of 7.22. TECHNIQUE IN DETAIL: After good spinal anesthesia was achieved, the patient was prepped and draped in usual sterile fashion in the supine position with leftward tilt. A transverse incision was made 2 fingerbreadths above the symphysis pubis and the abdomen was entered in layers. The uterus was identified, and a self-retaining retractor was placed. A transverse incision was made across the lower uterine segment and was extended bluntly. The fetus was found in cephalic presentation and was delivered. The nasopharynx was bulb suctioned and the cord was cut and clamped. Cord blood and cord gases were obtained, and the placenta was manually removed. Closure of the uterine incision was accomplished using a running locking suture of Monocryl. Good hemostasis was noted with single-layer closure. Attention was then turned to the adnexa. The right tube was identified and was serially excised using hemostats and plain chromic ties. This was carried up to the level of the cornua. A similar procedure was carried out on the other side. Good hemostasis was noted after the removal of both tubes. The uterus was then replaced into the abdominal cavity. The uterus and adnexal areas were reviewed and were noted to be hemostatic. The fascia was then closed using 2 sutures of PDS, brought laterally to the midline. The subcutaneous tissue was thoroughly irrigated and then made dry using Bovie coagulation technique. The subcutaneous tissue was closed in 2 layers for a good approximation. The skin was then closed with a subcuticular stitch of Monocryl. Dermabond was then placed across the skin edges. Sponge, lap, and needle counts were correct. The patient tolerated the procedure well and was taken to the recovery room in good condition. Job ID: [id number]
[2020-10-20] MEDS ORDERED: diphenhydrAMINE 25 MG CAP PO PRN (02:06)
[2020-10-20] MEDS ORDERED: Lanolin Ointment 7 GM TUBE TOP PRN (02:06)
[2020-10-20] MEDS ORDERED: Bisacodyl 10 MG SUPP PR PRN (02:06)
[2020-10-20] MEDS ORDERED: hydrALAZINE 20 MG/ML VIAL SLOW IVP PRN (02:06)
[2020-10-20] MEDS ORDERED: HYDROcodone/Acetaminophen 5/325 mg Tablet PO PRN (02:06)
[2020-10-20] MEDS ORDERED: NS / Oxytocin 40 units/1000ml 1,000 ML IV SCH (02:06)
[2020-10-20] MEDS ORDERED: Acetaminophen 325 MG TAB PO PRN (02:06)
--- NOTE | 2020-10-20 02:24 | PDOC.PP ---
Post Progress Note Post Day #: 1 Subjective: patient on unit. Feeling better, but tired. Pain controlled postop currently. PO intake tolerated: yes (ice chips only) Flatus: no Ambulation: no Vital Signs (12 hours) Temp Pulse Resp BP 10/19/20 21:06 98.4 F 100 18 155/93 H Weight Weight 147.418 kg - Physical Examination General: NAD Cardiovascular: no m/r/g, RRR Respiratory: clear to auscultation bilaterally, non-labored breathing Abdominal: no distention, appropriately TTP Fundus firm & at: level of umbilicus Deviation from normal: pressure dressing in place Neurological: no gross focal deficits Psychiatric: A&Ox3, normal affect Result Diagrams: 10/19/20 21:54 10/19/20 21:54 Additional Labs: Post Labs Hep Bs Antigen Non-Reactive S/CO (NonReactive) 10/19/20 22:27 Blood Type A POSITIVE 10/19/20 22:27 (1) Status: Acute - Assessment/Plan 35 yo G4 now P2022 delivered at 36.5 wga by RLTCS POD #1, s/p RLTCS w/ RRS at 36.5 wga - Routine postop cares - Briceno catheter in place, discontinue later today - Advance diet as tolerated - s/p PROM and then onset of contractions - pain control per anesthesia, then [place] PRN afterwards Dispo: continue inpatient care on . Addendum - Attending - Attending Attestation Date/Time: 10/20/20 [id number] I personally evaluated the patient and discussed the management with Dr. De La Torre. I agree with the History, Examination, Assessment and Plan documented above.
[2020-10-20 05:48] LABS: Hemoglobin 11.1 g/dL (12.0-16.0); Mean Corpuscular HGB CONC 32.8 g/dL (32.0-36.0); Mean Corpuscular Hemoglobin 28.6 pg (27.0-31.0); Mean Corpuscular Volume 87.3 fL (78.0-98.0); Mean Platelet Volume 8.5 fL (7.4-10.4); Platelet Count 213 thou/uL (130-400); RBC Distribution Width 12.2 % (11.5-14.5); White Blood Cell (WBC) Count 12.3 thou/uL (4.8-10.8)
[2020-10-20] MEDS ORDERED: Adacel (T-DAP) 0.5 ML SYRINGE IM ONE (09:00)
[2020-10-20] MEDS: Prenatal Vitamin 1 TAB PO SCH (09:02)
[2020-10-20] MEDS: Ferrous Sulfate 325 MG TAB PO SCH ×2 (09:02→18:21)
[2020-10-20] MEDS: Docusate Calcium (SURFAK) 240 MG CAP PO SCH ×2 (09:02→20:27)
[2020-10-20 11:19] LABS: SARS-CoV-2 MS2 Positive; SARS-CoV-2 N Gene Negative; SARS-CoV-2 S Gene Negative; SARS-CoV-2 by NAA Not Detected (NotDetected); SARS-CoV-2 orf1ab Negative
[2020-10-20] MEDS ORDERED: Sodium Chloride 0.9% 10 ML ONE (20:18)
[2020-10-21] MEDS: Ibuprofen 800 MG TAB PO SCH ×3 (05:40→22:34)
[2020-10-21] MEDS: Simethicone Chewable 80 MG TAB PO PRN ×3 (06:14→22:34)
--- NOTE | 2020-10-21 08:21 | PRG ---
DATE OF SERVICE: 10/21/2020 SUBJECTIVE: The patient is postoperative day 2 status post a repeat at 36 weeks' gestation for rupture of membranes. The patient reports today that she is tolerating p.o., voiding on her own, having decreased lochia and good pain control. OBJECTIVE: VITAL SIGNS: Blood pressure is 142/84, temperature is 98.1, pulse is 97, and respiratory rate of 16. GENERAL: She appears to be in no acute distress. She is alert, oriented, cooperative, and pleasant to interact with. HEENT: Head is normocephalic, atraumatic. ABDOMEN: Incision is clean, dry, and intact with suture. Fundus is difficult to assess due to habitus. EXTREMITIES: Nontender, nonedematous. LABORATORY DATA: hemoglobin is 11.1, hematocrit 34.0, and platelets of 213,000. ASSESSMENT AND PLAN: The patient is a 35-year-old postop day 2 status post a repeat with a bilateral salpingectomy for risk reduction at 36+ weeks. We will continue postoperative care. Anticipate discharge in the next day or two. Job ID: [id number]
[2020-10-21] MEDS: Docusate Calcium (SURFAK) 240 MG CAP PO SCH ×2 (09:58→23:21)
[2020-10-21] MEDS: Ferrous Sulfate 325 MG TAB PO SCH ×2 (09:58→17:20)
[2020-10-21] MEDS: Prenatal Vitamin 1 TAB PO SCH (09:58)
[2020-10-21] MEDS: HYDROcodone/Acetaminophen 5/325 mg Tablet PO PRN (13:18)
[2020-10-22] MEDS: Ibuprofen 800 MG TAB PO SCH ×3 (05:09→22:45)
--- NOTE | 2020-10-22 06:43 | PDOC.PP ---
Post Progress Note Post Day #: 3 PO intake tolerated: yes Flatus: yes Ambulation: yes Vital Signs (12 hours) Temp Pulse Resp BP 10/21/20 20:53 98.3 F 99 16 139/75 Weight Weight 325 lb - Physical Examination General: NAD Cardiovascular: no m/r/g, RRR Respiratory: clear to auscultation bilaterally, non-labored breathing Abdominal: + bowel sounds, lochia, no distention, appropriately TTP Skin: CS incision dry & intact, no rash Neurological: no gross focal deficits Psychiatric: A&Ox3, normal affect Result Diagrams: 10/20/20 05:32 10/19/20 21:54 Additional Labs: Post Labs Hep Bs Antigen Non-Reactive S/CO (NonReactive) 10/19/20 22:27 Blood Type A POSITIVE 10/19/20 22:27 - Assessment/Plan doing well rx sent for norco. fu at [facility] anahy samuels
[2020-10-22] MEDS: Ferrous Sulfate 325 MG TAB PO SCH (07:09)
[2020-10-22] MEDS: Prenatal Vitamin 1 TAB PO SCH (08:05)
[2020-10-22] MEDS: Docusate Calcium (SURFAK) 240 MG CAP PO SCH ×2 (08:05→22:45)
[2020-10-22] MEDS: HYDROcodone/Acetaminophen 5/325 mg Tablet PO PRN ×3 (08:21→22:51)
[2020-10-23] MEDS: Ibuprofen 800 MG TAB PO SCH ×2 (05:36→16:14)
[2020-10-23] MEDS: Ferrous Sulfate 325 MG TAB PO SCH (09:39)
[2020-10-23] MEDS: Docusate Calcium (SURFAK) 240 MG CAP PO SCH (09:42)
[2020-10-23] MEDS: Prenatal Vitamin 1 TAB PO SCH (09:42)
[2020-10-23] MEDS: HYDROcodone/Acetaminophen 5/325 mg Tablet PO PRN (10:03)
[2020-10-23 11:03] VITALS: BP 138/73; TEMP 97.2
--- NOTE | 2020-10-24 06:25 | DIS ---
DATE OF ADMISSION: 10/19/2020 DATE OF DISCHARGE: 10/23/2020 HOSPITAL COURSE: The patient is a 35-year-old female, postop day 5, status post a repeat with risk reducing bilateral salpingectomy, delivered at 36 weeks for rupture of membranes. The patient is now postop day 4, is tolerating a diet, voiding on her own, having decreased lochia and good pain control. Vital signs this morning; blood pressure 134/63, respiratory rate of 18, most recent pulse of 91. In general, she appears to be in no acute distress. She is alert, oriented, cooperative, and pleasant to interact with. ASSESSMENT AND PLAN: The patient is a 35-year-old female discharged yesterday, but held due to baby status as baby is still in NICU. The patient's postoperative course in general has been without complication. Home pain medications have already been sent, which include hydrocodone and ibuprofen. The patient will be following up with her primary provider, Dr. Sotelo in 2 weeks for incision check. She has instructions not to drive for 2 weeks or to lift anything more than 15 pounds for the next 4 to 6 weeks. She is to seek medical attention should she experience fever, increasing pain, or bleeding. Job ID: [id number]
== END 2020-10-23 16:20 | disposition home or self-care (01) | DRG 785 ==
LOC: L&D/OP 20:56 → L&D 22:02 → 3SW 10-20 03:43
PROVIDERS: ADMIT Obstetrics & Gynecology; ATTEND Obstetrics & Gynecology
PROC: 10D00Z1 Extraction of Products of Conception, Low, Open Approach (ICD-10-PCS; principal; 2020-10-20)
PROC: 0UB70ZZ Excision of Bilateral Fallopian Tubes, Open Approach (ICD-10-PCS; 2020-10-20)
DX: O34.211 Maternal care for low transverse scar from previous cesarean delivery (principal); O42.913 Preterm premature rupture of membranes, unspecified as to length of time between rupture and onset of labor, third trimester; Z20.828 Contact with and (suspected) exposure to other viral communicable diseases; O99.214 Obesity complicating childbirth; E66.9 Obesity, unspecified; Z3A.36 36 weeks gestation of pregnancy; Z37.0 Single live birth; Z79.82 Long term (current) use of aspirin; Z79.899 Other long term (current) drug therapy
CPT/HCPCS: 36415; 51702; 76819; 80053; 82570; 82805; 84112; 84156; 85025; 85027; 86780; 86850; 86900; 86901; 87340; 87635; 88302; 88307; 99285; J0360; J1200; J1885; J2270; J2405; U0003

== ENCOUNTER 2020-12-07 10:09 | Outpatient (CLI) | payer OTHER ==
--- NOTE | 2020-12-07 14:01 | CT ---
CT Abdomen Pelvis W Con History: Umbilical hernia Comparison: Abdomen pelvis CT June 2019 Findings: Lung bases are clear. No pericardial effusion. Liver, spleen, pancreas, adrenal glands are unremarkable. Mild fullness of the left renal pelvis with very mild calyceal dilatation. No ureteral dilatation. No nephroureterolithiasis. Small fat-containing umbilical hernia with mild congestive changes of the herniated omental fat. The transverse dimension of the neck measures 11 mm in the craniocaudal dimension of the hernia neck measures 1 cm. Appendix is visualized and is normal. No free intraperitoneal gas or fluid. Moderate distention of the urinary bladder. No retroperitoneal periaortic adenopathy. Normal proximal small bowel rotation. Adrenal glands unremarkable. No acute osseous abnormality. Impression: 1. Small omental fat-containing umbilical hernia with hernia neck measuring 11 mm in transverse by cr aniocaudad dimension of 1 cm with mild congestive changes of the herniated fat. 2. No evidence for bowel obstruction. 3. Normal appendix. 4. Very mild fullness of the left renal pelvis and renal calyces with symmetric enhancement and casi l left ureter likely physiologic for moderate urinary bladder distention. 5. No significant growth of the left peridiaphragmatic nodule measuring up to 2 cm size just craniad to the adrenal gland likely benign in nature. Differential includes a benign duplication cyst, gastric diverticulum, or paraganglioma.
== END 2020-12-07 10:10 | disposition home or self-care (01) ==
LOC: BICCT 10:09
PROVIDERS: ATTEND Surgery
DX: D49.0 Neoplasm of unspecified behavior of digestive system (principal); K42.9 Umbilical hernia without obstruction or gangrene
CPT/HCPCS: 74177

== ENCOUNTER 2021-02-21 12:48 | Outpatient (CLI) | payer OTHER ==
[2021-02-21 23:08] LABS: SARS-CoV-2 PCR by NAA Not Detected (NotDetected)
== END 2021-02-21 12:49 | disposition home or self-care (01) ==
LOC: LABBT 12:48
PROVIDERS: ATTEND Internal Medicine
DX: Z01.812 Encounter for preprocedural laboratory examination (principal); R10.13 Epigastric pain; K42.9 Umbilical hernia without obstruction or gangrene; E66.9 Obesity, unspecified; Z20.822 Contact with and (suspected) exposure to COVID-19
CPT/HCPCS: 87635; U0003; U0005

== ENCOUNTER 2021-02-26 07:13 | Day surgery (SDC) | payer OTHER ==
[2021-02-25 11:25] VITALS: BMI 54.3
[2021-02-26] MEDS ORDERED: PROPOFOL 200 MG/20 ML VIAL ONE (09:20)
== END 2021-02-26 10:20 | disposition home or self-care (01) ==
LOC: SDC 07:13
PROVIDERS: ATTEND Internal Medicine
PROC: 0DB68ZX Excision of Stomach, Via Natural or Artificial Opening Endoscopic, Diagnostic (ICD-10-PCS; principal; 2021-02-26)
DX: R10.13 Epigastric pain (principal); K31.89 Other diseases of stomach and duodenum; K44.9 Diaphragmatic hernia without obstruction or gangrene; K42.9 Umbilical hernia without obstruction or gangrene; E66.9 Obesity, unspecified; I10 Essential (primary) hypertension; Z68.43 Body mass index [BMI] 50.0-59.9, adult; Z79.899 Other long term (current) drug therapy
CPT/HCPCS: 88305; 88312; J2704

== ENCOUNTER 2021-04-03 17:25 | Emergency (ER) | payer OTHER ==
[2021-04-03 18:10] LABS: #Basophils 0.1 thou/uL (0.0-0.2); #Eosinphils 0.1 thou/uL (0.0-0.7); #Lymphocytes 1.6 thou/uL (1.20-3.40); #Monocytes 0.3 thou/uL (0.11-0.59); %Basophils 0.9 % (0.0-1.0); %Lymphocytes 26.7 % (21.0-51.0); %Monocytes 5.1 % (0.0-10.0); %Neutrophils 65.4 % (42.0-75.0); Hemoglobin 14.1 g/dL (12.0-16.0); Mean Corpuscular HGB CONC 33.5 g/dL (32.0-36.0); Mean Corpuscular Hemoglobin 29.4 pg (27.0-31.0); Mean Corpuscular Volume 87.9 fL (78.0-98.0); Mean Platelet Volume 7.6 fL (7.4-10.4); Platelet Count 249 thou/uL (130-400); Red Blood Cell (RBC) Count 4.79 mill/uL (4.20-5.40); White Blood Cell (WBC) Count 6.1 thou/uL (4.8-10.8)
[2021-04-03 18:36] LABS: ALT (SGPT) 29 U/L (8-55); AST (SGOT) 22 U/L (5-34); Albumin 4.1 g/dL (3.5-5.0); Alkaline Phosphatase 76 U/L (40-110); Anion Gap 15 mmol/L (10-20); BUN (Urea Nitrogen) 17 mg/dL (7.0-18.7); Bilirubin, Total 0.6 mg/dL (0.2-1.2); Calc. Creatinine Clearance 0 mL/min (70-130); Calcium 9.5 mg/dL (7.8-10.44); Carbon Dioxide 24 mmol/L (22-29); Chloride 105 mmol/L (98-107); Globulin 2.9 g/dL (2.4-3.5); Glucose 119 mg/dL (70-105); Lipase 20 U/L (8-78); Potassium 4.4 mmol/L (3.5-5.1); Sodium 140 mmol/L (136-145)
== END 2021-04-03 19:28 | disposition home or self-care (01) ==
LOC: ERS 17:25
DX: K42.9 Umbilical hernia without obstruction or gangrene (principal); I10 Essential (primary) hypertension; Z79.899 Other long term (current) drug therapy
CPT/HCPCS: 36415; 74176; 80053; 83690; 85025

== ENCOUNTER 2021-04-16 11:15 | Outpatient (CLI) | payer OTHER ==
[2021-04-16 12:40] LABS: #Eosinphils 0.2 10x3/uL (0.0-0.5); #Monocytes 0.4 10x3/uL (0.0-1.1); #Neutrophils 2.6 10x3/uL (1.5-8.4); %Basophils 0.6 % (0.0-2.0); %Eosinophils 3.3 % (0.0-6.0); %Lymphocytes 35.3 % (18.0-47.0); %Monocytes 7.6 % (0.0-10.0); %Neutrophils 52.8 % (40.0-75.0); Hemoglobin 14.4 g/dL (12.0-15.5); Mean Corpuscular Hemoglobin 28.6 pg (27.0-33.0); Mean Corpuscular Volume 86.9 fl (81.6-98.3); Mean Platelet Volume 10.4 fl (7.4-10.4); Platelet Count 298 10x3/uL (150-450); RBC Distribution Width 14.2 % (11.5-14.5); Red Blood Cell (RBC) Count 5.03 10x6/uL (3.90-5.03); White Blood Cell (WBC) Count 4.9 10x3/uL (3.5-10.5)
[2021-04-16 12:59] LABS: Anion Gap 16 mmol/L (10-20); BUN (Urea Nitrogen) 18 mg/dL (7.0-18.7); Calc. Creatinine Clearance 0 mL/min (70-130); Calcium 9.5 mg/dL (7.8-10.44); Carbon Dioxide 22 mmol/L (22-29); Chloride 106 mmol/L (98-107); Glucose 83 mg/dL (70-105); Sodium 139 mmol/L (136-145)
[2021-04-16 13:04] LABS: Potassium 5.3 mmol/L (3.5-5.1)
[2021-04-16 17:55] LABS: SARS-CoV-2 PCR by NAA Not Detected (NotDetected)
== END 2021-04-16 11:16 | disposition home or self-care (01) ==
LOC: LABBT 11:15
PROVIDERS: ATTEND Surgery
DX: Z01.818 Encounter for other preprocedural examination (principal); K43.9 Ventral hernia without obstruction or gangrene; Z20.822 Contact with and (suspected) exposure to COVID-19
CPT/HCPCS: 80048; 85025; 87635; U0003; U0005

== ENCOUNTER 2021-04-18 06:02 | Day surgery (SDC) | payer OTHER ==
[2021-04-16 12:57] VITALS: BMI 55.4
[2021-04-18] MEDS ORDERED: Bupivacaine 0.25% HCL 30 ML VIAL ONE (06:35)
[2021-04-18] MEDS ORDERED: Lidocaine 1% w/Epinephrine 1:100K 20 ML VIAL ONE (06:35)
[2021-04-18] MEDS ORDERED: Fentanyl 100 MCG/2 ML VIAL ONE ×2 (06:56→08:47)
[2021-04-18] MEDS ORDERED: Midazolam HCl 2 mg/2 ml Vial ONE (07:11)
[2021-04-18] MEDS ORDERED: PROPOFOL 200 MG/20 ML VIAL ONE (07:24)
[2021-04-18] MEDS ORDERED: Glycopyrrolate 0.2 MG/ML 5 ML SYRINGE ONE (07:24)
[2021-04-18] MEDS ORDERED: Rocuronium Bromide 10 MG/ML (10ML VIAL) ONE (07:24)
[2021-04-18] MEDS ORDERED: Ondansetron PF 4 MG/2 ML Vial ONE (07:24)
[2021-04-18] MEDS ORDERED: Lidocaine 1% PF 5 ML VIAL ONE (07:24)
[2021-04-18] MEDS ORDERED: Dexamethasone 20 MG/5 ML VIAL ONE (07:24)
[2021-04-18] MEDS ORDERED: Ketorolac Tromethamine 30 MG/ML VIAL ONE (07:24)
== END 2021-04-18 10:40 | disposition home or self-care (01) ==
LOC: SDC 06:02
PROVIDERS: ATTEND Surgery
PROC: 0WUF4JZ Supplement Abdominal Wall with Synthetic Substitute, Percutaneous Endoscopic Approach (ICD-10-PCS; principal; 2021-04-18)
DX: K43.9 Ventral hernia without obstruction or gangrene (principal); J30.2 Other seasonal allergic rhinitis; E66.9 Obesity, unspecified; Z68.43 Body mass index [BMI] 50.0-59.9, adult; Z79.899 Other long term (current) drug therapy
CPT/HCPCS: J0690; J1100; J1885; J2250; J2405; J2704; J3010; S0020